=== PATIENT | male | born 1995 | race Caucasian/White ===

== ENCOUNTER 2017-06-15 18:16 | Emergency (ER) | payer BC ==
[~2017-06-15] VITALS: Ht 175.3 cm; Wt 63.5 kg
[2017-06-15 18:26] VITALS: BP 127/77
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
[2017-06-15] MEDS ORDERED: ACETAMINOPHEN 325 MG TABLET ONE (18:48)
[2017-06-15] MEDS ORDERED: IBUPROFEN 600 MG TABLET PO ONE ×2 (18:49→19:00)
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
--- NOTE | 2017-06-15 18:58 | NUR ---
PT IS BACK FROM [place]
[2017-06-15] MEDS ORDERED: ACETAMINOPHEN 325 MG TABLET PO ONE (19:00)
--- NOTE | 2017-06-15 20:40 | NUR ---
Patient discharged to home in stable condition. Written and verbal after care instructions given. Patient verbalizes understanding of instruction. ambulatory with a steady gait noted. pt aaox4 no acute distress noted, resp even and unlabored.
== END 2017-06-15 20:42 | disposition home or self-care (01) ==
LOC: ER 18:18
DX: S06.0X0A Concussion without loss of consciousness, initial encounter (principal); S00.83XA Contusion of other part of head, initial encounter; Y04.0XXA Assault by unarmed brawl or fight, initial encounter; Y92.89 Other specified places as the place of occurrence of the external cause; Y93.89 Activity, other specified; Y99.8 Other external cause status
CPT/HCPCS: 70110-TC; A4606; Z7610